=== PATIENT | male | born 1990 | race Caucasian/White ===

== ENCOUNTER 2021-10-27 09:00 | Emergency (ER) | payer OTHER, SELFPAY ==
--- NOTE | ~2021-10-27 | US_ITS ---
US scrotum doppler INDICATION: Left testicular pain TECHNIQUE: Testicular sonogram utilizing grayscale and color Doppler FINDINGS: The testes are normal in size and appearance. No focal lesions are seen. The right testes measures 4.7 x 3.4 x 2.6 cm centimeters, and the left testis measures 4.9 x 2.9 x 2.4 cm cm. There is normal vascular flow to both testes. The right and left epididymides appear normal. There is a left varicocele. IMPRESSION: 1. Left varicocele. Reviewed, dictated and finalized at location A. IMPRESSION: 1. Left varicocele.
[2021-10-27 09:01] VITALS: BP 117/82; PULSE 98; RESP 18; TEMP 36.5; O2SAT 99
[2021-10-27 09:29] LABS: Appearance Urine Clear (Clear); Bilirubin Urine Negative (Negative); Blood Urine Negative (Negative); Color Urine Yellow (Yellow); Glucose Urine UA Negative (Negative); Ketones Urine Negative (Negative); Leukocyte Esterase Ur Negative LEU/UL (Negative); Nitrate Urine Negative (Negative); Protein Urine Negative (Negative); Specific Grav Ur 1.025 (1.001-1.035); Urobilinogen Urine 0.2 mg/dL (<2.0); pH Urine 5.5 (5.0-9.0)
[2021-10-27 09:36] LABS: Add Urine Microscopic? NO
--- NOTE | 2021-10-27 09:57 | ED.MALEGU ---
HPI - Male Genitourinary General Chief complaint: Urogenital-Male Stated complaint: testicular issues Time Seen by Provider: 10/27/21 09:09 History of Present Illness HPI Narrative: 30-year-old male presents with 5 days of irritation to his left testicle, he states it has never happened before though when he was younger he thinks he may have had a hernia but this feels different. States that it seems to get worse throughout the day, no nausea or vomiting, no penile discharge, he is not currently sexually active for the past year. Denies any skin changes. No fevers no chills Related Data Allergies Allergy/AdvReac Type Severity Reaction Status Date / Time Sulfa (Sulfonamide Allergy Unknown Skin Verified 10/27/21 09:24 Antibiotics) Reaction Review of Systems Review of Systems: CONST: No fever. HEENT: No sore throat C/V: No chest pain RESP: No cough GI: No nausea/vomiting : No dysuria; left testicular discomfort M/S: No joint pain. SKIN: No rash. NEURO: [No headache or focal numbness or weakness] PSYCH: [No depression] FOR[facility]LY [facility] Past Medical History Medical History (Updated 10/27/21 @ 10:35 by Heaven Chew MD) Attention-deficit hyperactivity disorder, combined type Family History Family History Grandparent Depression Hypertension Family history of cardiovascular disease Carcinoma of colon Mother Depression Hypertension Family history of elevated blood lipids Social History Social History Smoking status: Current every day smoker Exam Narrative: EXAMINATION OF ORGAN SYSTEMS/BODY AREAS: Constitutional: Vital signs per nursing GENERAL:[No acute distress, non-toxic appearing.] Sitting comfortably in bed HEAD: Normal with no signs of head trauma. EYES: EOMI, conjunctiva normal ENT: Hearing grossly intact LUNGS: Nonlabored breathing. HEART: [Regular rate and rhythm] ABD: [Soft], [nontender to palpation] : Soft nontender testicles bilaterally without swelling, not elevated, no rash EXT: Normal range of motion SKIN: [No rashes or lesions.] NEURO: [Alert and oriented x 3. No gross focal sensory or strength deficits.] Course Vital Signs Vital signs: Vital Signs Temperature 97.7 F 10/27/21 09:01 Pulse Rate 98 10/27/21 09:01 Respiratory Rate 18 10/27/21 09:01 Blood Pressure 117/82 10/27/21 09:01 Pulse Oximetry 99 10/27/21 09:01 Oxygen Delivery Room Air 10/27/21 09:01 Temperature 97.7 F 10/27/21 09:01 Pulse Rate 84 10/27/21 10:42 Respiratory Rate 18 10/27/21 10:42 Blood Pressure 134/83 10/27/21 10:42 Pulse Oximetry 97 10/27/21 10:42 Oxygen Delivery Room Air 10/27/21 09:01 MDM - Male Genitourinary MDM Narrative Medical decision making narrative: 30-year-old male presents with several days of left testicular irritation, vital stable, exam shows well-appearing patient not in any distress, with soft testicle that is nontender to palpation, I have very low concern for torsion given his exam, also less likely STDs as he is not currently sexually active, urinalysis negative, ultrasound will be obtained for further evaluation, this does show varicocele, findings discussed with the patient, as well as importance of close follow-up with urology in the next 2 days and strict return precautions. Lab Data Labs: Lab Results 10/27/21 Range/Units 09:24 Urine Color Yellow (Yellow) Urine Appearance Clear (Clear) Urine pH 5.5 (5.0-9.0) Ur Specific [place] 1.025 (1.001-1.035) Urine Protein Negative (Negative) mg/dL Urine Glucose (UA) Negative (Negative) mg/dL Urine Ketones Negative (Negative) mg/dL Ur Blood (Man) Negative (Negative) Urine Nitrate Negative (Negative) Urine Bilirubin Negative (Negative) Urine Urobilinogen 0.2 (<2.0) mg/dL Leukocyte Esterase Rfl Negative (Negative) BELLA/UL Discharge Plan Disch
[2021-10-27 10:41] VITALS: BP 134/83; PULSE 84; RESP 18; O2SAT 97
[2021-10-27 10:42] VITALS: BP 134/83; PULSE 84; RESP 18; O2SAT 97
== END 2021-10-27 10:44 | disposition home or self-care (01) ==
PROVIDERS: Emergency Provider Emergency Medicine
DX: I86.1 Scrotal varices (principal); F17.200 Nicotine dependence, unspecified, uncomplicated
CPT/HCPCS: 76870; 81003; 93976; 99284

== ENCOUNTER 2025-01-03 15:40 | Outpatient (CLI) | payer OTHER, SELFPAY ==
--- OUTSIDE RECORDS SUMMARY | 2025-01-03 16:06 | XMS_ITS | Clinical Summary ---
Author Organization [facility] Address [address] [place] [id number] Care Team Providers Care Receiving Distribution Station Operator Name Role Phone None, Provider MD Primary Care Provider Unavaila ble Allergies Active Allergy Reactions Criticality Noted Date Comments Sulfa Antibiotics Hives 10/31/2021 Medications No known medications Active Problems No known active problems Social History Tobacco Use Types Packs/Day Years Used Date Smoking Tobacco: Former Cigarettes 1.5 15 0 09/16/2006 - 09/16/2021 Smokeless Tobacco: Never Alcohol Use Standard Drinks/Week Comments Yes 0 (1 standard drink = 0.6 oz pur e alcohol) rarely PHQ-2 Answer Date Recorded PHQ-2 Score - If the patient scores above 3, please move on to questions 3-9 2 10/31/2021 Sex and Gender Information Value Date Recorded Sex Assigned at Not on file Legal Sex Male 8:02 AM CDT Gender Identity Not on file Sexual Orientation Not on file Last Filed Vital Signs Vital Sign Reading Time Taken Comments Blood Pressure 119/81 10/31/2021 10:23 AM CDT Pulse 100 10/31/2021 10:23 AM CDT Temperature 36.7 C (98 F) 10/31/2021 10:23 AM CDT Respiratory Rate 18 10/31/2021 10:23 AM CDT Oxygen Saturation 96% 10/31/2021 10:23 AM CDT Inhaled Oxygen Concentration - - Weight 96.6 kg (213 lb) 10/31/2021 10:23 AM CDT Height 185.4 cm (6' 1) 10/31/2021 10:23 AM CDT Body Mass Index 28.1 10/31/2021 10:23 AM CDT Plan of Treatment Health Maintenance Due Date Last Done Comments Annual Physical 11/17/1994 Hepatitis C 11/17/2009 DTaP, Tdap and Td Vaccines ( 1 - Tdap) 11/17/2010 Hepatitis B Vaccines (1 of 3 - 19+ 3-dose series) 11/17/2010 HPV Vaccines (1 - 3-dose SCD M series) 11/17/2018 COVID-19 Vaccine (1 - 2023-2 5 season) 2024 Meningococcal B Vaccine Aged Out No l onger eligible based on patient's age to complete this topic Meningococcal Vaccine Aged Out No galina lani eligible based on patient's age to complete this topic Pneumococcal Vaccine: Pediat rics (0 to 5 Years) and At-Risk Patients (6 to 49 Years) Aged Out No longer eligible b ased on patient's age to complete this topic RSV Immunizations Under 20 Months Aged Out No longer eligible based on patient's age to complete this topic Insurance Care Teams Receiving Distribution Station Operator Relationship Specialty Start Date End Date None, Provider, PCP - General 10/31/21
--- OUTSIDE RECORDS SUMMARY | 2025-01-03 16:06 | XMS_ITS | Continuity of Care Document ---
Author Organization [facility] Address [address] [place] [address] [place] [address] Phone Care Team Providers Care Roast Master Name Role Phone [facility] Unavailable Unavail able Sickage, Lakshmi Unavailable Unavailable Advance Directives Directive Yes / No Effective Date File Name No Information Encounters Encounter Description Practice Location Reason(s) For Visit Diagnoses Date Provider Providers Copied on Encounter [facility], [address] [place], [place], [id number], [place] tel:[phone] [facility] No Information 8-200 6 [facility] [facility] [address] [facility], [facility] [address], [place], [place], [id number] , [place]. tel:[phone] Consulting Provider: Lakshmi Chavez, [address] [place] [address], [address]. tel:[phone] Family History Family Member Type Diagnosis Age At Onset No Information Payers Payer name Insurance type Covered green party ID Authoriza tion(s) No Information Social History Type Description Quantity Date Captured Comments Sex Male Smoking Status No Information Chief Complaint And Reason For Visit No Information Reason For Referral Reason For Referral No Information History Of Present Illness Encounter Date Complaint History Of Prese nt Illness No Information Functional Status Date Functional Assessmen t No Information Instructions Date Instruction Additional Infor mation No Information Assessments Type Assessment Date No Information Patient Care Teams Name Effective Dates (start - stop) Status Members No Information
[2025-01-03 19:17] LABS: Hematocrit 44.8 % (42.0-52.0); Hemoglobin 15.1 g/dL (14.0-18.0); Immature Granulocyte Percent A 0.3 % (0-0.5); Lymphocytes Absolute Auto 2.49 K/mm3 (0.9-3.2); Mean Corpuscular HGB Conc 33.7 g/dl (32-36); Mean Corpuscular Hemoglobin 30.3 pg (26-34); Mean Corpuscular Volume 89.8 fl (80-100); Nucleated Red Blood Cells Absolute Auto 0.000 K/mm3 (0.0-0.012); Nucleated Red Blood Cells Perc 0.0 % (0.0-0.2); Platelet Count Result 283 k/mm3 (150-375); Red Blood Count 4.99 M/mm3 (4.6-6.20); White Blood Count 7.1 K/mm3 (4.5-10.0)
[2025-01-03 20:12] LABS: Thyroid Stimulating Hormone Reflex 2.040 uIU/mL (0.465-4.68)
[2025-01-03 20:17] LABS: Alanine Aminotransferase 55 U/L (6-50); Albumin Level 4.2 g/dL (3.5-5.1); Alkaline Phosphatase 61 U/L (38-126); Anion Gap 6 mmol/L (4-12); Aspartate Amino Transferase 52 U/L (17-59); Bilirubin,Total 0.6 mg/dL (0.2-1.3); Blood Urea Nitrogen 16 mg/dL (9-20); Calcium 9.2 mg/dL (8.4-10.2); Carbon Dioxide 26 mmol/L (22-30); Chloride 106 mmol/L (98-107); Cholesterol 265 mg/dL (0-200); Estimated Glomerular Filt Rate > 60; Glucose 92 mg/dL (65-110); HDL Direct 52 mg/dL; Potassium 4.4 mmol/L (3.4-5.0); Sodium 138 mmol/L (137-145); Total Protein 7.0 g/dL (6.3-8.2)
[2025-01-03 21:53] LABS: Triglycerides 671 mg/dL (<150)
== END 2025-01-03 15:41 | disposition home or self-care (01) ==
LOC: ANHGOSHLAB 15:41
PROVIDERS: PCP Nurse Practitioner Family; Visit Provider Nurse Practitioner Family
DX: E55.9 Vitamin D deficiency, unspecified (principal); R03.0 Elevated blood-pressure reading, without diagnosis of hypertension; Z79.899 Other long term (current) drug therapy; Z13.220 Encounter for screening for lipoid disorders
CPT/HCPCS: 36415; 80053; 80061; 82306; 84443; 85025